=== PATIENT | male | born 1970 ===

== ENCOUNTER 2020-07-30 19:10 | Inpatient (IN) | payer MEDICARE, OTHER ==
[2020-07-30 20:05] LABS: Bilirubin,Urine NEG (Negative); Blood,Urine MOD (Negative); Color,Urine Yellow (Yellow); Granular Casts,Urine 1 /LPF; Hyaline Casts,Urine 7 /LPF; Mucus,Urine FEW /HPF; Urobilinogen,Urine < 2.0 mg/dL (<2.0); WBC,Urine < 1.0 /HPF (0.0-6.0)
--- NOTE | 2020-07-30 20:14 | Emergency Department Report ---
<LUCY COX III - Last Filed: 07/30/20 21:18> ED General Adult HPI - General Chief complaint: Recheck/Abnormal Lab/Rx Stated complaint: DEHYDRATION PUI?: No Time Seen by Provider: 07/30/20 19:41 - Related Data Allergies Allergy/AdvReac Type Severity Reaction Status Date / Time No Known Allergies Allergy Unverified 07/30/20 19:34 ED Course - Reevaluation(s) Reevaluation #1: I reviewed the findings and management of this patient in real-time and I have personally seen and examined this patient and participated in the decision making for this patient with the midlevel. Patient is a 49-year-old male that presents emergency room for muscle cramps, myalgias and being in the heat. Patient has a history of abscess. Patient denies any other symptoms. Patient had labs done. Patient's labs show elevated CK, acute renal failure. I examined the patient,. Patient's CV exam shows normal S1-S2 no murmurs. Patient's lung sounds are clear to auscultation. Patient's abdominal exam is negative. Patient has muscle tenderness. I discussed all results with patient. I discussed plan of care with patient. Patient agrees with plan of care and admission. Patient to be admitted to the hospitalist service. 07/30/20 21:18 ED Medical Decision Making - Lab Data Result diagrams: 07/30/20 19:50 07/30/20 19:50 ED Disposition Clinical Impression: Myalgia Proteinuria Qualifiers: Proteinuria type: unspecified Qualified Code(s): R80.9 - Proteinuria, unspecified Rhabdomyolysis Qualifiers: Rhabdomyolysis type: non-traumatic Qualified Code(s): M62.82 - Rhabdomyolysis Acute renal failure Qualifiers: Acute renal failure type: unspecified Qualified Code(s): N17.9 - Acute kidney failure, unspecified Disposition: 09 OP ADMIT IP TO THIS HOSP Condition: Fair Print Language: CUBAN <JEFF NOLAN - Last Filed: 07/30/20 21:50> ED General Adult HPI - General PUI?: No Source: patient Mode of arrival: Ambulatory Limitations: No Limitations - History of Present Illness Initial comments: Patient is a 49-year-old male presents emergency room with complaints of diffuse muscle cramping and myalgia for the last couple days. Patient reports that his air conditioner broke in his house and it has been very hot over the last few days. He states he has been sweating. Patient states he is concerned that he may be dehydrated. He is able to tolerate p.o. intake. He denies any fever, nausea, vomiting, diarrhea, back pain, dark urine. He has a past medical history of hypertension and reports that he does take his medication but does not know what he takes. He states that he saw his primary care doctor last month and that his blood pressure was elevated and that they are working on managing his blood pressure. He denies any allergies to medications ED Review of Systems ROS: Stated complaint: DEHYDRATION Other details as noted in HPI Comment: All other systems reviewed and negative ED Past Medical Hx - Past Medical History Hx Hypertension: Yes - Social History Smoking Status: Never Smoker ED Physical Exam - General Limitations: No Limitations General appearance: alert, in no apparent distress - Head Head exam: Present: atraumatic, normocephalic - Eye Eye exam: Present: normal appearance - ENT ENT exam: Present: mucous membranes moist - Respiratory Respiratory exam: Present: normal lung sounds bilaterally. Absent: respiratory distress, wheezes, rales, rhonchi, stridor, chest wall tenderness, accessory muscle use, decreased breath sounds, prolonged expiratory - Cardiovascular Cardiovascular Exam: Present: regular rate, normal rhythm, normal heart sounds. Absent: systolic murmur, diastolic murmur, rubs, gallop - Neurological Exam Neurological exam: Present: alert, oriented X3 - Psychiatric Psychiatric exam: Present: normal affect, normal mood - Skin Skin exam: Present: warm, dry, intact ED Course Vital Signs 07/30/20 19:37 Temperature 99.4 F Pulse Rate 98 H Respiratory 18 Rate Blood Pressure 155/122 O2 Sat by Pulse 99 Oximetry - Consultations Consultation #1: 07/30/20 21:26 Attempted to call hospitalist, Dr. Ponce, daytime hospitalist answered, advised will have nighttime hospitalist callback 07/30/20 21:[address] uMrillo, hospitalist regarding patient presentation and results, will accept and resume care of patient, will admit to hospitalist service ED Medical Decision Making - Lab Data Result diagrams: 07/30/20 19:50 07/30/20 19:50 Lab Results 07/30/20 07/30/20 07/30/20 Range/Units 19:50 19:50 Unknown WBC 12.5 H (4.5-11.0) K/mm3 RBC 5.70 H (3.65-5.03) M/mm3 Hgb 16.2 H (11.8-15.2) gm/dl Hct 48.6 H (35.5-45.6) % MCV 85 (84-94) fl MCH 29 (28-32) pg MCHC 33 (32-34) % RDW 14.3 (13.2-15.2) % Plt Count 214 (140-440) K/mm3 Lymph % (Auto) 19.3 (13.4-35.0) % [place] % (Auto) 9.3 H (0.0-7.3) % Eos % (Auto) 0.1 (0.0-4.3) % Baso % (Auto) 1.1 (0.0-1.8) % Lymph # (Auto) 2.4 (1.2-5.4) K/mm3 [place] # (Auto) 1.2 H (0.0-0.8) K/mm3 Eos # (Auto) 0.0 (0.0-0.4) K/mm3 Baso # (Auto) 0.1 (0.0-0.1) K/mm3 Seg Neutrophils % 70.2 H (40.0-70.0) % Seg Neutrophils # 8.8 H (1.8-7.7) K/mm3 Sodium 129 L (137-145) mmol/L Potassium 4.5 (3.6-5.0) mmol/L Chloride 93.0 L (98-107) mmol/L Carbon Dioxide 16 L (22-30) mmol/L Anion Gap 25 mmol/L BUN 43 H (9-20) mg/dL Creatinine 2.7 H (0.8-1.3) mg/dL Estimated GFR 25 ml/min BUN/Creatinine Ratio 16 % Glucose 86 (75-100) mg/dL Calcium 9.8 (8.4-10.2) mg/dL Magnesium 2.40 H (1.7-2.3) mg/dL Total Bilirubin 1.00 (0.1-1.2) mg/dL AST 46 H (5-40) units/L ALT 29 (7-56) units/L Alkaline Phosphatase 124 (35-129) units/L Total Creatine Kinase 2158 H (55-170) units/L Total Protein 8.4 H (6.3-8.2) g/dL Albumin 5.2 H (3.9-5) g/dL Albumin/Globulin Ratio 1.6 % Urine Color Yellow (Yellow) Urine Turbidity Hazy (Clear) Urine pH 5.0 (5.0-7.0) Ur Specific [place] 1.021 (1.003-1.030) Urine Protein 100 mg/dl (Negative) mg/dL Urine Glucose (UA) Neg (Negative) mg/dL Urine Ketones Neg (Negative) mg/dL Urine Blood Mod (Negative) Urine Nitrite Neg (Negative) Urine Bilirubin Neg (Negative) Urine Urobilinogen < 2.0 (<2.0) mg/dL Ur Leukocyte Esterase Neg (Negative) Urine WBC (Auto) < 1.0 (0.0-6.0) /HPF Urine RBC (Auto) 10.0 (0.0-6.0) /HPF Hyaline Casts 7 /LPF Granular Casts 1 /LPF Urine Mucus Few /HPF - Medical Decision Making Patient is a 49-year-old male presents emergency room with complaints of diffuse muscle cramping and myalgia for the last couple days. Patient reports that his air conditioner broke in his house and it has been very hot over the last few days. He states he has been sweating. Patient states he is concerned that he may be dehydrated. He is able to tolerate p.o. intake. He denies any fever, nausea, vomiting, diarrhea, back pain, dark urine. He has a past medical history of hypertension and reports that he does take his medication but does not know what he takes. He states that he saw his primary care doctor last month and that his blood pressure was elevated and that they are working on managing his blood pressure. He denies any allergies to medications. Vitals with elevated blood pressure, otherwise stable. Lab significant for CK of 2158. Creatinine is 2.7, BUN is 43, GFR of 25. No old labs for comparison. Labs show evidence of acute rhabdomyolysis causing acute renal failure. Discussed case with Dr. Cox, ER attending who advised admit to hospitalist service. Ordered for patient to have 2 L of IV fluids. Spoke with Dr. Murillo, hospitalist regarding patient presentation and results, will accept and resume care of patient, will admit to hospitalist service. Critical care attestation.: If time is entered above; I have spent that time in minutes in the direct care of this critically ill patient, excluding procedure time. ED Disposition Is pt being admited?: Yes Does the pt Need Aspirin: No Time of Disposition: 21:27
[2020-07-30 20:41] LABS: Basophils # (Auto) 0.1 K/mm3 (0.0-0.1); Basophils % (Auto) 1.1 % (0.0-1.8); Eosinophils % (Auto) 0.1 % (0.0-4.3); Hematocrit 48.6 % (35.5-45.6); Hemoglobin 16.2 gm/dl (11.8-15.2); Lymphocytes # (Auto) 2.4 K/mm3 (1.2-5.4); Lymphocytes % (Auto) 19.3 % (13.4-35.0); Mean Corpuscular HGB Conc 33 % (32-34); Mean Corpuscular Volume 85 fl (84-94); Monocytes # (Auto) 1.2 K/mm3 (0.0-0.8); Monocytes % (Auto) 9.3 % (0.0-7.3); Platelet Count 214 K/mm3 (140-440); Red Cell Distribution Width 14.3 % (13.2-15.2)
[2020-07-30 21:03] LABS: Albumin 5.2 g/dL (3.9-5); Calcium 9.8 mg/dL (8.4-10.2)
[2020-07-30] MEDS ORDERED: SODIUM CHLORIDE 0.9% 1000 ML 1,000 ML IV ONE ×2 (21:16)
[2020-07-30] MEDS ORDERED: ACETAMINOPHEN 325 MG TAB PO PRN (22:02)
[2020-07-30] MEDS ORDERED: ALBUTEROL 2.5 MG/3 ML NEBU IH PRN (22:02)
[2020-07-30] MEDS ORDERED: ONDANSETRON 4 MG/2 ML INJ IV PRN (22:02)
[2020-07-30] MEDS ORDERED: hydrALAZINE 20 MG/1 ML INJ IV PRN (22:04)
--- NOTE | 2020-07-30 22:10 | History and Physical Report ---
History of Present Illness Date of examination: 07/30/20 Date of admission: 07/30/20 Chief complaint: Muscle cramps, myalgia History of present illness: 49-year-old male with past medical history of hypertension was brought to the emergency room because of diffuse muscle cramping and myalgia for the last couple days. Patient reports that his air conditioner broke in his house and it has been very hot over the last few days. He states he has been sweating. Linda ent states he is concerned that he may be dehydrated. He is able to tolerate p.o. intake. He denies any fever, nausea, vomiting, diarrhea, back pain, dark urine. In the emergency room patient is found to have acute rhabdomyolysis and acute renal failure Past History Past Medical History: hypertension Medications and Allergies Allergies Allergy/AdvReac Type Severity Reaction Status Date / Time No Known Allergies Allergy Unverified 07/30/20 19:34 Active Meds: Active Medications Acetaminophen (Acetaminophen 325 Mg Tab) 650 mg PO Q4H PRN PRN Reason: Pain MILD(1-3)/Fever >100.5/GARZA Albuterol (Albuterol 2.5 Mg/3 Ml Nebu) 2.5 mg IH Q3HRT PRN PRN Reason: Shortness Of Breath Famotidine (Famotidine 20 Mg Tab) 20 mg PO BID BREE Heparin Sodium (Porcine) (Heparin 5,000 Unit/1 Ml Vial) 5,000 unit SUB-Q Q8HR BREE Hydralazine HCl (Hydralazine 20 Mg/1 Ml Inj) 10 mg IV Q6H PRN PRN Reason: htn Sodium Chloride (Nacl 0.9% 1000 Ml) 1,000 mls @ 999 mls/hr IV BOLUS ONE Stop: 07/30/20 22:16 Sodium Chloride (Nacl 0.9% 1000 Ml) 1,000 mls @ 999 mls/hr IV BOLUS ONE Stop: 07/30/20 22:16 Sodium Chloride (Nacl 0.45% 1000 Ml) 1,000 mls @ 125 mls/hr IV DIRECT BREE Ondansetron HCl (Ondansetron 4 Mg/2 Ml Inj) 4 mg IV Q8H PRN PRN Reason: Nausea And Vomiting Sodium Chloride (Sodium Chloride 0.9% 10 Ml Flush Syringe) 10 ml IV BID BREE Sodium Chloride (Sodium Chloride 0.9% 10 Ml Flush Syringe) 10 ml IV PRN PRN PRN Reason: LINE FLUSH Review of Systems Constitutional: malaise, other Musculoskeletal: muscle cramps, myalgias Exam - Constitutional Vitals: Temp Pulse Resp BP Pulse Ox 99.4 F 98 H 18 155/122 99 07/30/20 19:37 07/30/20 19:37 07/30/20 19:37 07/30/20 19:37 07/30/20 19:37 General appearance: Present: no acute distress, well-nourished - EENT Eyes: Present: PERRL ENT: hearing intact, clear oral mucosa - Neck Neck: Present: supple, normal ROM - Respiratory Respiratory effort: normal Respiratory: bilateral: CTA - Cardiovascular Heart Sounds: Present: S1 & S2. Absent: rub, click - Extremities Extremities: pulses symmetrical, No edema Peripheral Pulses: within normal limits - Abdominal General gastrointestinal: Present: soft, non-tender, non-distended, normal bowel sounds Male genitourinary: Present: normal - Integumentary Integumentary: Present: clear, warm, dry - Musculoskeletal Musculoskeletal: gait normal, strength equal bilaterally - Psychiatric Psychiatric: appropriate mood/affect, intact judgment & insight - Neurologic Neurologic: CNII-XII intact, moves all extremities Results - Labs CBC & Chem 7: 07/30/20 19:50 07/30/20 19:50 Labs: Laboratory Last Values WBC 12.5 K/mm3 (4.5-11.0) H 07/30/20 19:50 RBC 5.70 M/mm3 (3.65-5.03) H 07/30/20 19:50 Hgb 16.2 gm/dl (11.8-15.2) H 07/30/20 19:50 Hct 48.6 % (35.5-45.6) H 07/30/20 19:50 MCV 85 fl (84-94) 07/30/20 19:50 MCH 29 pg (28-32) 07/30/20 19:50 MCHC 33 % (32-34) 07/30/20 19:50 RDW 14.3 % (13.2-15.2) 07/30/20 19:50 Plt Count 214 K/mm3 (140-440) 07/30/20 19:50 Lymph % (Auto) 19.3 % (13.4-35.0) 07/30/20 19:50 [place] % (Auto) 9.3 % (0.0-7.3) H 07/30/20 19:50 Eos % (Auto) 0.1 % (0.0-4.3) 07/30/20 19:50 Baso % (Auto) 1.1 % (0.0-1.8) 07/30/20 19:50 Lymph # (Auto) 2.4 K/mm3 (1.2-5.4) 07/30/20 19:50 [place] # (Auto) 1.2 K/mm3 (0.0-0.8) H 07/30/20 19:50 Eos # (Auto) 0.0 K/mm3 (0.0-0.4) 07/30/20 19:50 Baso # (Auto) 0.1 K/mm3 (0.0-0.1) 07/30/20 19:50 Seg Neutrophils % 70.2 % (40.0-70.0) H 07/30/20 19:50 Seg Neutrophils # 8.8 K/mm3 (1.8-7.7) H 07/30/20 19:50 Sodium 129 mmol/L (137-145) L 07/30/20 19:50 Potassium 4.5 mmol/L (3.6-5.0) 07/30/20 19:50 Chloride 93.0 mmol/L (98-107) L 07/30/20 19:50 Carbon Dioxide 16 mmol/L (22-30) L 07/30/20 19:50 Anion Gap 25 mmol/L 07/30/20 19:50 BUN 43 mg/dL (9-20) H 07/30/20 19:50 Creatinine 2.7 mg/dL (0.8-1.3) H 07/30/20 19:50 Estimated GFR 25 ml/min 07/30/20 19:50 BUN/Creatinine Ratio 16 % 07/30/20 19:50 Glucose 86 mg/dL (75-100) 07/30/20 19:50 Calcium 9.8 mg/dL (8.4-10.2) 07/30/20 19:50 Magnesium 2.40 mg/dL (1.7-2.3) H 07/30/20 19:50 Total Bilirubin 1.00 mg/dL (0.1-1.2) 07/30/20 19:50 AST 46 units/L (5-40) H 07/30/20 19:50 ALT 29 units/L (7-56) 07/30/20 19:50 Alkaline Phosphatase 124 units/L (35-129) 07/30/20 19:50 Total Creatine Kinase 2158 units/L (55-170) H 07/30/20 19:50 Total Protein 8.4 g/dL (6.3-8.2) H 07/30/20 19:50 Albumin 5.2 g/dL (3.9-5) H 07/30/20 19:50 Albumin/Globulin Ratio 1.6 % 07/30/20 19:50 Urine Color Yellow (Yellow) 07/30/20 Unknown Urine Turbidity Hazy (Clear) 07/30/20 Unknown Urine pH 5.0 (5.0-7.0) 07/30/20 Unknown Ur Specific [place] 1.021 (1.003-1.030) 07/30/20 Unknown Urine Protein 100 mg/dl mg/dL (Negative) 07/30/20 Unknown Urine Glucose (UA) Neg mg/dL (Negative) 07/30/20 Unknown Urine Ketones Neg mg/dL (Negative) 07/30/20 Unknown Urine Blood Mod (Negative) 07/30/20 Unknown Urine Nitrite Neg (Negative) 07/30/20 Unknown Urine Bilirubin Neg (Negative) 07/30/20 Unknown Urine Urobilinogen < 2.0 mg/dL (<2.0) 07/30/20 Unknown Ur Leukocyte Esterase Neg (Negative) 07/30/20 Unknown Urine WBC (Auto) < 1.0 /HPF (0.0-6.0) 07/30/20 Unknown Urine RBC (Auto) 10.0 /HPF (0.0-6.0) 07/30/20 Unknown Hyaline Casts 7 /LPF 07/30/20 Unknown Granular Casts 1 /LPF 07/30/20 Unknown Urine Mucus Few /HPF 07/30/20 Unknown Assessment and Plan VTE prophylaxis?: Chemical Plan of care discussed with patient/family: Yes - Patient Problems (1) Rhabdomyolysis Current Visit: Yes Status: Acute Qualifiers: Rhabdomyolysis type: non-traumatic Qualified Code(s): M62.82 - Rhabd omyolysis Plan to address problem: Admit the patient to the medical telemetry. Cardiac diet. Half-normal saline at the rate of 150 cc/h. We will monitor the patient closely we will recheck CK and CMP in the morning (2) Acute renal failure Current Visit: Yes Status: Acute Qualifiers: Acute renal failure type: unspecified Qualified Code(s): N17.9 - Acute kidney failure, unspecified Plan to address problem: Avoid nephrotoxic drug. Half-normal saline at the rate of 150 cc/h. Renally dose medication. Reconsult nephrology for evaluation (3) Hypertension Current Visit: Yes Status: Acute Plan to address problem: Hydralazine 10 mg IV every 6 hours as needed. We will monitor the blood pressure closely (4) Myalgia Current Visit: Yes Status: Acute Plan to address problem: Tylenol 650 mg p.o. every 6 hours as needed. Half-normal saline at the rate of 150 cc/h (5) DVT prophylaxis Current Visit: Yes Status: Acute Plan to address problem: Heparin 5000 units subcu every 8 hours for DVT prophylaxis. Pepcid 20 mg p.o. twice daily for GI prophylaxis. Patient is a full code
[2020-07-30] MEDS ORDERED: SODIUM CHLORIDE 0.45% 1000 ML 1,000 ML IV SCH ×2 (23:00)
[2020-07-31] MEDS ORDERED: HEPARIN 5,000 UNIT/1 ML VIAL SUB-Q SCH ×2 (06:00→08:00)
--- NOTE | 2020-07-31 07:53 | Progress Note ---
Assessment and Plan Assessment and plan: -- Rhabdomyolysis/CK 2158 Current Visit: Yes Status: Acute Fluids IV hydration, input output monitoring Monitor CK levels, renal function Urine drug screen --Hyponatremia; mild improvement Current Visit: Yes Status: Acute Normal saline, monitor electrolytes. --Leukocytosis; improved Current Visit: Yes Status: Acute Probably hemoconcentration, due to severe dehydration Vigorous IV hydration closely monitor -- Acute renal failure; Current Visit: Yes Status: Acute Vasomotor nephropathy , ATN avoid nephrotoxins, monitor renal function Normal saline, input output, nephrology consulted Creatinine trending down --hypertension/moderate control Current Visit: Yes Status: Acute Hydralazine 25 mg 3 times a day 10 mg IV every 6 hours as needed. --Myalgia Current Visit: Yes Status: Acute Pain medications, IV fluids, plenty of oral fluids --DVT prophylaxis; Current Visit: Yes Status: Acute Heparin 5000 units subcu renal dose --GI prophylaxis; Current Visit: Yes Status: Acute Pepcid 20 mg p.o. twice daily Closely monitor patient and adjust management as needed Continue current management Closely monitor electrolytes Check urine drug screen Possible discharge in 1 to 2 days if stable Plan of care reviewed with the patient and his nurse History Interval history: I have seen and examined the patient at the bedside Patient's chart and medications reviewed Patient was admitted with severe dehydration Exposure to excessive heat, rhabdomyolysis And myalgias Patient feels slightly better Vital signs noted Hospitalist Physical - Constitutional Vitals: Temp Pulse Resp BP Pulse Ox 99.2 F 83 18 144/87 99 07/31/20 00:37 07/31/20 00:37 07/31/20 00:37 07/31/20 00:37 07/31/20 00:37 General appearance: Present: mild distress, well-nourished - EENT Eyes: Present: PERRL, EOM intact - Neck Neck: Present: supple, normal ROM - Respiratory Respiratory effort: normal Respiratory: bilateral: diminished, negative: rales, rhonchi, wheezing - Cardiovascular Rhythm: regular Heart Sounds: Present: S1 & S2 - Extremities Extremities: no ischemia, No edema - Abdominal General gastrointestinal: soft, non-tender, non-distended, normal bowel sounds - Integumentary Integumentary: Present: clear, warm - Psychiatric Psychiatric: appropriate mood/affect, cooperative - Neurologic Neurologic: CNII-XII intact, moves all extremities Results - Labs CBC & Chem 7: 07/31/20 08:09 07/31/20 08:09 Labs: Laboratory Last Values WBC 12.5 K/mm3 (4.5-11.0) H 07/30/20 19:50 RBC 5.70 M/mm3 (3.65-5.03) H 07/30/20 19:50 Hgb 16.2 gm/dl (11.8-15.2) H 07/30/20 19:50 Hct 48.6 % (35.5-45.6) H 07/30/20 19:50 MCV 85 fl (84-94) 07/30/20 19:50 MCH 29 pg (28-32) 07/30/20 19:50 MCHC 33 % (32-34) 07/30/20 19:50 RDW 14.3 % (13.2-15.2) 07/30/20 19:50 Plt Count 214 K/mm3 (140-440) 07/30/20 19:50 Lymph % (Auto) 19.3 % (13.4-35.0) 07/30/20 19:50 [place] % (Auto) 9.3 % (0.0-7.3) H 07/30/20 19:50 Eos % (Auto) 0.1 % (0.0-4.3) 07/30/20 19:50 Baso % (Auto) 1.1 % (0.0-1.8) 07/30/20 19:50 Lymph # (Auto) 2.4 K/mm3 (1.2-5.4) 07/30/20 19:50 [place] # (Auto) 1.2 K/mm3 (0.0-0.8) H 07/30/20 19:50 Eos # (Auto) 0.0 K/mm3 (0.0-0.4) 07/30/20 19:50 Baso # (Auto) 0.1 K/mm3 (0.0-0.1) 07/30/20 19:50 Seg Neutrophils % 70.2 % (40.0-70.0) H 07/30/20 19:50 Seg Neutrophils # 8.8 K/mm3 (1.8-7.7) H 07/30/20 19:50 Sodium 129 mmol/L (137-145) L 07/30/20 19:50 Potassium 4.5 mmol/L (3.6-5.0) 07/30/20 19:50 Chloride 93.0 mmol/L (98-107) L 07/30/20 19:50 Carbon Dioxide 16 mmol/L (22-30) L 07/30/20 19:50 Anion Gap 25 mmol/L 07/30/20 19:50 BUN 43 mg/dL (9-20) H 07/30/20 19:50 Creatinine 2.7 mg/dL (0.8-1.3) H 07/30/20 19:50 Estimated GFR 25 ml/min 07/30/20 19:50 BUN/Creatinine Ratio 16 % 07/30/20 19:50 Glucose 86 mg/dL (75-100) 07/30/20 19:50 Calcium 9.8 mg/dL (8.4-10.2) 07/30/20 19:50 Magnesium 2.40 mg/dL (1.7-2.3) H 07/30/20 19:50 Total Bilirubin 1.00 mg/dL (0.1-1.2) 07/30/20 19:50 AST 46 units/L (5-40) H 07/30/20 19:50 ALT 29 units/L (7-56) 07/30/20 19:50 Alkaline Phosphatase 124 units/L (35-129) 07/30/20 19:50 Total Creatine Kinase 2158 units/L (55-170) H 07/30/20 19:50 Total Protein 8.4 g/dL (6.3-8.2) H 07/30/20 19:50 Albumin 5.2 g/dL (3.9-5) H 07/30/20 19:50 Albumin/Globulin Ratio 1.6 % 07/30/20 19:50 Urine Color Yellow (Yellow) 07/30/20 Unknown Urine Turbidity Hazy (Clear) 07/30/20 Unknown Urine pH 5.0 (5.0-7.0) 07/30/20 Unknown Ur Specific [place] 1.021 (1.003-1.030) 07/30/20 Unknown Urine Protein 100 mg/dl mg/dL (Negative) 07/30/20 Unknown Urine Glucose (UA) Neg mg/dL (Negative) 07/30/20 Unknown Urine Ketones Neg mg/dL (Negative) 07/30/20 Unknown Urine Blood Mod (Negative) 07/30/20 Unknown Urine Nitrite Neg (Negative) 07/30/20 Unknown Urine Bilirubin Neg (Negative) 07/30/20 Unknown Urine Urobilinogen < 2.0 mg/dL (<2.0) 07/30/20 Unknown Ur Leukocyte Esterase Neg (Negative) 07/30/20 Unknown Urine WBC (Auto) < 1.0 /HPF (0.0-6.0) 07/30/20 Unknown Urine RBC (Auto) 10.0 /HPF (0.0-6.0) 07/30/20 Unknown Hyaline Casts 7 /LPF 07/30/20 Unknown Granular Casts 1 /LPF 07/30/20 Unknown Urine Mucus Few /HPF 07/30/20 Unknown Active Medications - Current Medications Current Medications: Generic Name Dose Route Start Last Admin Trade Name Freq PRN Reason Stop Dose Admin Acetaminophen 650 mg 07/30/20 22:02 Acetaminophen 325 Mg Tab PO Q4H PRN Pain MILD(1-3)/Fever >100.5/GARZA Albuterol 2.5 mg 07/30/20 22:02 Albuterol 2.5 Mg/3 Ml Nebu IH Q3HRT PRN Shortness Of Breath Famotidine 10 mg 07/31/20 10:00 Famotidine 10 Mg Tab PO BID BREE Heparin Sodium (Porcine) 5,000 unit 07/31/20 06:00 07/31/20 06:50 Heparin 5,000 Unit/1 Ml Vial SUB-Q 5,000 unit Q8HR BREE Administration Hydralazine HCl 10 mg 07/30/20 22:04 Hydralazine 20 Mg/1 Ml Inj IV Q6H PRN htn Sodium Chloride 1,000 mls @ 150 mls/hr 07/30/20 23:00 Nacl 0.45% 1000 Ml IV DIRECT BREE Ondansetron HCl 4 mg 07/30/20 22:02 Ondansetron 4 Mg/2 Ml Inj IV Q8H PRN Nausea And Vomiting Sodium Chloride 10 ml 07/31/20 10:00 Sodium Chloride 0.9% 10 Ml Flush Syringe IV BID BREE Sodium Chloride 10 ml 07/30/20 22:02 Sodium Chloride 0.9% 10 Ml Flush Syringe IV PRN PRN LINE FLUSH
[2020-07-31] MEDS ORDERED: SODIUM CHLORIDE 0.9% 1000 ML 1,000 ML IV SCH (08:00)
[2020-07-31 08:45] LABS: Basophils % (Auto) 0.2 % (0.0-1.8); Eosinophils # (Auto) 0.1 K/mm3 (0.0-0.4); Eosinophils % (Auto) 0.8 % (0.0-4.3); Hematocrit 43.7 % (35.5-45.6); Hemoglobin 14.2 gm/dl (11.8-15.2); Lymphocytes % (Auto) 26.4 % (13.4-35.0); Mean Corpuscular HGB Conc 33 % (32-34); Mean Corpuscular Volume 87 fl (84-94); Monocytes % (Auto) 13.4 % (0.0-7.3); Platelet Count 189 K/mm3 (140-440); Red Cell Distribution Width 14.2 % (13.2-15.2)
[2020-07-31] MEDS ORDERED: FAMOTIDINE 20 MG TAB PO SCH (10:00)
[2020-07-31] MEDS: FAMOTIDINE 10 MG TAB PO SCH ×2 (10:08→22:37)
[2020-07-31] MEDS: SODIUM BICARBONATE 150 MEQ in WATER FOR INJECTION (PF) 1,000 ML IV SCH (10:48)
--- NOTE | 2020-07-31 17:53 | Ultrasound Report ---
ULTRASOUND RENAL INDICATION: Acute renal insufficiency. COMPARISON: No relevant prior imaging study available. FINDINGS: RIGHT KIDNEY: Size: 10.2 cm. Echogenicity: Normal. Cortical thickness: Normal. Stones: None. Hydronephrosis: None. Cyst or mass: There are 2 simple cysts. The larger measures 2.5 cm at the upper pole. LEFT KIDNEY: Size: 9.6 cm. Echogenicity: Normal. Cortical thickness: Normal. Stones: None. Hydronephrosis: None. Cyst or mass: None. Urinary Bladder: No significant abnormality. Free Fluid: None. Additional Findings: None. IMPRESSION 1. No acute sonographic abnormality of the kidneys. Signer Name: Faustino Anne MD Signed: 07/31/2020 5:48 PM Workstation Name: [id number]
--- NOTE | 2020-07-31 18:07 | Progress Note ---
Assessment and Plan Assessment and plan: -- Rhabdomyolysis/CK 2158 Current Visit: Yes Status: Acute Fluids IV hydration, input output monitoring Monitor CK levels, renal function Urine drug screen --Hyponatremia; mild improvement Current Visit: Yes Status: Acute Normal saline, monitor electrolytes. --Leukocytosis; improved Current Visit: Yes Status: Acute Probably hemoconcentration, due to severe dehydration Vigorous IV hydration closely monitor -- Acute renal failure; Current Visit: Yes Status: Acute Vasomotor nephropathy , ATN avoid nephrotoxins, monitor renal function Normal saline, input output, nephrology consulted Creatinine trending down --hypertension/moderate control Current Visit: Yes Status: Acute Hydralazine 25 mg 3 times a day 10 mg IV every 6 hours as needed. --Myalgia Current Visit: Yes Status: Acute Pain medications, IV fluids, plenty of oral fluids --DVT prophylaxis; Current Visit: Yes Status: Acute Heparin 5000 units subcu renal dose --GI prophylaxis; Current Visit: Yes Status: Acute Pepcid 20 mg p.o. twice daily Closely monitor patient and adjust management as needed Continue current management Closely monitor electrolytes Check urine drug screen Possible discharge in 1 to 2 days if stable Plan of care reviewed with the patient and his nurse Hospitalist Physical - Constitutional Vitals: Temp Pulse Resp BP Pulse Ox 99.1 F 72 20 139/90 98 07/31/20 17:29 07/31/20 17:29 07/31/20 17:29 07/31/20 17:29 07/31/20 17:29 General appearance: Present: mild distress, well-nourished Results - Labs CBC & Chem 7: 07/31/20 08:09 08/01/20 06:12 Labs: Laboratory Last Values WBC 7.7 K/mm3 (4.5-11.0) 07/31/20 08:09 RBC 5.00 M/mm3 (3.65-5.03) 07/31/20 08:09 Hgb 14.2 gm/dl (11.8-15.2) 07/31/20 08:09 Hct 43.7 % (35.5-45.6) 07/31/20 08:09 MCV 87 fl (84-94) 07/31/20 08:09 MCH 29 pg (28-32) 07/31/20 08:09 MCHC 33 % (32-34) 07/31/20 08:09 RDW 14.2 % (13.2-15.2) 07/31/20 08:09 Plt Count 189 K/mm3 (140-440) 07/31/20 08:09 Lymph % (Auto) 26.4 % (13.4-35.0) 07/31/20 08:09 [place] % (Auto) 13.4 % (0.0-7.3) H 07/31/20 08:09 Eos % (Auto) 0.8 % (0.0-4.3) 07/31/20 08:09 Baso % (Auto) 0.2 % (0.0-1.8) 07/31/20 08:09 Lymph # (Auto) 2.0 K/mm3 (1.2-5.4) 07/31/20 08:09 [place] # (Auto) 1.0 K/mm3 (0.0-0.8) H 07/31/20 08:09 Eos # (Auto) 0.1 K/mm3 (0.0-0.4) 07/31/20 08:09 Baso # (Auto) 0.0 K/mm3 (0.0-0.1) 07/31/20 08:09 Seg Neutrophils % 59.2 % (40.0-70.0) 07/31/20 08:09 Seg Neutrophils # 4.5 K/mm3 (1.8-7.7) 07/31/20 08:09 ABG pH 7.332 (7.320-7.450) 07/31/20 11:10 POC ABG pCO2 45.6 mmHg (32.0-48.0) 07/31/20 11:10 POC ABG pO2 31.5 mmHg (83-108) L 07/31/20 11:10 POC ABG HCO3 23.6 07/31/20 11:10 ABG O2 Saturation 58.0 (0-100) 07/31/20 11:10 POC ABG Base Excess -2.5 07/31/20 11:10 ABG Hemoglobin 15.3 (12.0-17.5) 07/31/20 11:10 ABG Oxyhemoglobin 57.0 (94-98) L 07/31/20 11:10 ABG Methemoglobin 0.3 (0.0-1.5) 07/31/20 11:10 ABG Sodium 130.6 mmol/L (136.0-145.0) L 07/31/20 11:10 ABG Potassium 4.4 mmol/L (3.40-4.50) 07/31/20 11:10 ABG Chloride 100.0 mmol/L (98-107) 07/31/20 11:10 ABG Glucose 74 mg/dL (65-95) 07/31/20 11:10 Carboxyhemoglobin 1.4 (0.5-1.5) 07/31/20 11:10 FiO2 % 21.0 07/31/20 11:10 Sodium 133 mmol/L (137-145) L 07/31/20 08:09 Potassium 4.1 mmol/L (3.6-5.0) 07/31/20 08:09 Chloride 100.2 mmol/L (98-107) 07/31/20 08:09 Carbon Dioxide 19 mmol/L (22-30) L 07/31/20 08:09 Anion Gap 18 mmol/L 07/31/20 08:09 BUN 40 mg/dL (9-20) H 07/31/20 08:09 Creatinine 1.8 mg/dL (0.8-1.3) H 07/31/20 08:09 Estimated GFR 40 ml/min 07/31/20 08:09 BUN/Creatinine Ratio 22 % 07/31/20 08:09 Glucose 88 mg/dL (75-100) 07/31/20 08:09 Calcium 9.0 mg/dL (8.4-10.2) 07/31/20 08:09 Magnesium 2.40 mg/dL (1.7-2.3) H 07/30/20 19:50 Total Bilirubin 1.00 mg/dL (0.1-1.2) 07/30/20 19:50 AST 46 units/L (5-40) H 07/30/20 19:50 ALT 29 units/L (7-56) 07/30/20 19:50 Alkaline Phosphatase 124 units/L (35-129) 07/30/20 19:50 Total Creatine Kinase 2158 units/L (55-170) H 07/30/20 19:50 Total Protein 8.4 g/dL (6.3-8.2) H 07/30/20 19:50 Albumin 5.2 g/dL (3.9-5) H 07/30/20 19:50 Albumin/Globulin Ratio 1.6 % 07/30/20 19:50 Arterial Blood Glucose 74 mg/dL (65-95) 07/31/20 11:10 Arterial Blood Ionized Calcium 4.7 mg/dL (4.6-5.3) 07/31/20 11:10 Urine Color Yellow (Yellow) 07/30/20 Unknown Urine Turbidity Hazy (Clear) 07/30/20 Unknown Urine pH 5.0 (5.0-7.0) 07/30/20 Unknown Ur Specific [place] 1.021 (1.003-1.030) 07/30/20 Unknown Urine Protein 100 mg/dl mg/dL (Negative) 07/30/20 Unknown Urine Glucose (UA) Neg mg/dL (Negative) 07/30/20 Unknown Urine Ketones Neg mg/dL (Negative) 07/30/20 Unknown Urine Blood Mod (Negative) 07/30/20 Unknown Urine Nitrite Neg (Negative) 07/30/20 Unknown Urine Bilirubin Neg (Negative) 07/30/20 Unknown Urine Urobilinogen < 2.0 mg/dL (<2.0) 07/30/20 Unknown Ur Leukocyte Esterase Neg (Negative) 07/30/20 Unknown Urine WBC (Auto) < 1.0 /HPF (0.0-6.0) 07/30/20 Unknown Urine RBC (Auto) 10.0 /HPF (0.0-6.0) 07/30/20 Unknown Hyaline Casts 7 /LPF 07/30/20 Unknown Granular Casts 1 /LPF 07/30/20 Unknown Urine Mucus Few /HPF 07/30/20 Unknown Fox/IV: Voiding Method Toilet Active Medications - Current Medications Current Medications: Generic Name Dose Route Start Last Admin Trade Name Freq PRN Reason Stop Dose Admin Acetaminophen 650 mg 07/30/20 22:02 Acetaminophen 325 Mg Tab PO Q4H PRN Pain MILD(1-3)/Fever >100.5/GARZA Albuterol 2.5 mg 07/30/20 22:02 Albuterol 2.5 Mg/3 Ml Nebu IH Q3HRT PRN Shortness Of Breath Famotidine 10 mg 07/31/20 10:00 07/31/20 10:08 Famotidine 10 Mg Tab PO 10 mg BID BREE Administration Heparin Sodium (Porcine) 5,000 unit 07/31/20 20:00 Heparin 5,000 Unit/1 Ml Vial SUB-Q Q12H BREE Hydralazine HCl 10 mg 07/30/20 22:04 Hydralazine 20 Mg/1 Ml Inj IV Q6H PRN htn Sodium Chloride 1,000 mls @ 125 mls/hr 07/31/20 08:00 07/31/20 10:14 Nacl 0.9% 1000 Ml IV 125 mls/hr DIRECT BREE Administration Sodium Bicarbonate 150 meq/ 1,150 mls @ 150 mls/hr 07/31/20 10:00 07/31/20 10:48 Sterile Water IV 08/04/20 17:39 150 mls/hr DIRECT BREE Administration Ondansetron HCl 4 mg 07/30/20 22:02 Ondansetron 4 Mg/2 Ml Inj IV Q8H PRN Nausea And Vomiting Sodium Chloride 10 ml 07/31/20 10:00 07/31/20 10:14 Sodium Chloride 0.9% 10 Ml Flush Syringe IV 10 ml BID BREE Administration Sodium Chloride 10 ml 07/30/20 22:02 07/31/20 10:09 Sodium Chloride 0.9% 10 Ml Flush Syringe IV 10 ml PRN PRN Administration LINE FLUSH Nutrition/Malnutrition Assess - Dietary Evaluation Nutrition/Malnutrition Findings: Nutrition Notes Start: 07/31/20 12:34 Freq: Status: Active Protocol: Document 07/31/20 12:34 CW (Rec: 07/31/20 12:36 CW [id number]) Nutrition Notes 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 Pt is consuming 100% of current diet. Skin is intact. No Ajith score available. Nutrition Intervention Revisit per MD consult or patient Sign Off request: Additional Comments S/O for intact skin and no ajith score available
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
[2020-07-31 19:07] LABS: Amphetamine Screen,Urine Negative; Benzodiazepines Screen,Urine Negative; Cocaine Screen,Urine Negative; Methadone Screen,Urine Negative; Opiate Screen,Urine Negative
[2020-07-31 19:19] LABS: Cannabinoid Screen,Urine Positive
[2020-07-31] MEDS: HEPARIN 5,000 UNIT/1 ML VIAL SUB-Q SCH (22:37)
[2020-08-01] MEDS: SODIUM BICARBONATE 150 MEQ in WATER FOR INJECTION (PF) 1,000 ML IV SCH (04:05)
[2020-08-01 07:43] LABS: BUN/Creatinine Ratio 23; Blood Urea Nitrogen 27 mg/dL (9-20); Calcium 8.9 mg/dL (8.4-10.2); Hemolysis Index 5
[2020-08-01] MEDS: FAMOTIDINE 10 MG TAB PO SCH (09:54)
[2020-08-01] MEDS: HEPARIN 5,000 UNIT/1 ML VIAL SUB-Q SCH (09:55)
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
[2020-08-01 11:55] VITALS: BP 132/92
--- NOTE | 2020-08-01 20:27 | Progress Note ---
Assessment and Plan Assessment Acute kidney injury Acidosis Rhabdomyolysis Hemoconcentration Leukocytosis Recommendations Stop IV bicarb fluids Encourage oral hydration Trend CPK Keep MAP more than 65 Renally dose medications Avoid nephrotoxins Renal diet Subjective Date of service: 08/01/20 Principal diagnosis: AGUSTIN Interval history: Feels better this morning. Notes adequate urine output. Objective - Exam Narrative Exam: General: No acute distress HEENT: Oral mucosa moist Neck: Supple, no JVD Chest: Clear to auscultation bilaterally Heart: RRR, S1 and S2, no pericardial rub Abdomen: Soft, nontender, no renal bruit Extremity: No peripheral cyanosis, edema Neurological: Alert, awake, no asterixis Dermatology: No skin rash Psych: No agitation Musculoskeletal: No joint effusion - Vital Signs Vital signs: Vital Signs - 12hr 08/01/20 10:56 Temperature 98.9 F Pulse Rate 61 Respiratory 16 Rate Blood Pressure 132/92 O2 Sat by Pulse 98 Oximetry - Lab 07/31/20 08:09 08/01/20 06:12 Most recent lab results ABG pH 7.332 (7.320-7.450) 07/31/20 11:10 ABG O2 Saturation 58.0 (0-100) 07/31/20 11:10 Calcium 8.9 mg/dL (8.4-10.2) 08/01/20 06:12 Magnesium 2.40 mg/dL (1.7-2.3) H 07/30/20 19:50 Medications & Allergies - Medications Allergies/Adverse Reactions: Allergies No Known Allergies Allergy (Verified 07/30/20 22:07) Home Medications: Home Medications Medication Instructions Recorded Confirmed Last Taken Type Calcium Carb/Vitamin D3/Vit K2 1 tab PO HS 07/31/20 07/31/20 07/30/20 History Simvastatin 40 mg PO HS 07/31/20 07/31/20 07/30/20 History Triamterene-Hctz 37.5-25 mg Cp 1 tab PO HS 07/31/20 07/31/20 07/30/20 History amLODIPine 10 mg PO HS 07/31/20 07/31/20 07/30/20 History Famotidine [Pepcid] 10 mg PO BID #20 tablet 08/01/20 Unknown Rx
== END 2020-08-01 14:30 | disposition home or self-care (01) | DRG 557 ==
LOC: ED 19:10 → 3A 22:02
PROVIDERS: ADMIT Hospitalist; ATTEND Internal Medicine
PROC: 4A033R1 Measurement of Arterial Saturation, Peripheral, Percutaneous Approach (ICD-10-PCS; principal; 2020-07-31)
DX: M62.82 Rhabdomyolysis (principal); N17.0 Acute kidney failure with tubular necrosis; E87.2 Acidosis; E87.1 Hypo-osmolality and hyponatremia; D72.829 Elevated white blood cell count, unspecified; E86.0 Dehydration; I10 Essential (primary) hypertension
CPT/HCPCS: 36415; 36600; 76770; 80048; 80053; 80307; 81001; 82550; 82805; 83735; 85025; 96374; G0378; J1644; J7030